=== PATIENT | female | born 1965 | race Caucasian/White ===

== ENCOUNTER → 2016-05-01 16:41 | Outpatient (CLI) | payer OTHER ==
[2014-09-22 13:17] VITALS: BMI 44.9
[~2016-05-01 16:41] MED LIST: BENADRYL25 MG PO; FAMOTIDINE10 MG; FAMOTIDINE10 MG PO; FOLTX TABLET1 EACH PO; IBUPROFEN800 MG PO; MOBIC7.5 MG PO; MULTI-DAY VITAM1 TAB PO; PERCOCET 10/3251 TA1 PO; TRANXENE T-TAB7.5 MG PO; ULTRAM50 MG PO; VALTREX1000 MG PO; VALTREX500 MG PO; VITAMIN B-1000 MCG/M IM; VITAMIN B-122500 MCG PO; VITAMIN D50000 UNIT PO
== END | disposition home or self-care (01) ==
LOC: D.MAMMO 08:00
DX: R92.8 Other abnormal and inconclusive findings on diagnostic imaging of breast (principal)

== ENCOUNTER → 2017-08-09 19:45 | Outpatient (CLI) | payer OTHER ==
[2014-09-22 13:17] VITALS: BMI 44.9
== END | disposition home or self-care (01) ==
LOC: D.MAMMO 16:00
DX: Z12.31 Encounter for screening mammogram for malignant neoplasm of breast (principal)

== ENCOUNTER 2019-03-03 08:00 | Outpatient (CLI) | payer OTHER ==
[2014-09-22 13:17] VITALS: BMI 44.9
== END 2019-03-03 23:59 | disposition home or self-care (01) ==
LOC: D.MAMMO 08:00
PROVIDERS: ATTEND Family Medicine
DX: Z12.31 Encounter for screening mammogram for malignant neoplasm of breast (principal)

== ENCOUNTER 2019-03-13 09:00 | Outpatient (CLI) | payer OTHER ==
[2014-09-22 13:17] VITALS: BMI 44.9
== END 2019-03-13 10:00 | disposition home or self-care (01) ==
LOC: D.MAMMO 09:00
PROVIDERS: ATTEND Obstetrics & Gynecology
DX: R92.8 Other abnormal and inconclusive findings on diagnostic imaging of breast (principal)